=== PATIENT | male | born 2000 | race Caucasian/White ===

== ENCOUNTER 2019-04-20 21:45 | Emergency (ER) | payer SELFPAY ==
--- NOTE | 2019-04-20 22:41 | ER Document Report ---
HPI - HPI Time Seen by Provider: 04/20/19 22:37 Pain Level: 2 Context: Patient is a 18-year-old male who presents emergency department with a chief complaint of sore throat. Patient reports he has had a sore throat for 2 days and it is very painful when he swallows. Patient reports he has not had a fever, ear pain or difficulty swallowing. Patient denies rash. Patient denies sick contacts. Patient reports he has not taken anything for his discomfort. - CONSTITUTIONAL Constitutional: DENIES: Fever Past Medical History - General Information source: Patient - Social History Smoking Status: Former Smoker Chew tobacco use (# tins/day): No Frequency of alcohol use: Occasional Drug Abuse: None Lives with: Family Family History: None Patient has suicidal ideation: No Patient has homicidal ideation: No - Past Medical History Cardiac Medical History: Reports: None Pulmonary Medical History: Reports: None EENT Medical History: Reports: None Neurological Medical History: Reports: None Endocrine Medical History: Reports: None Renal/ Medical History: Reports: None Malignancy Medical History: Reports None GI Medical History: Reports: None Musculoskeletal Medical History: Reports None Skin Medical History: Reports None Psychiatric Medical History: Reports: None Traumatic Medical History: Reports: None Infectious Medical History: Reports: None Surgical Hx: Negative Vertical Provider Document - CONSTITUTIONAL Agree With Documented VS: Yes Exam Limitations: No Limitations General Appearance: No Apparent Distress - HEENT HEENT: Atraumatic, Normocephalic, PERRLA Notes: Patient does have slightly erythematous tonsils bilaterally without edema. Uvula is midline. Airway is patent. - NECK Neck: Normal Inspection Notes: No cervical lymphadenopathy. - RESPIRATORY Respiratory: Breath Sounds Normal, No Respiratory Distress - CARDIOVASCULAR Cardiovascular: Regular Rate, Regular Rhythm - GI/ABDOMEN Gastrointestinal: Abdomen Soft, Abdomen Non-Tender, Normal Bowel Sounds - BACK Back: Normal Inspection - MUSCULOSKELETAL/EXTREMETIES Musculoskeletal/Extremeties: FROM, Non-Tender - NEURO Level of Consciousness: Awake, Alert, Appropriate - DERM Integumentary: Warm, Dry, No Rash Course - Re-evaluation Re-evalutation: 04/20/19 23:29 Patient strep test was negative. I did inform the patient to take Tylenol and ibuprofen as needed for his pain. Strep culture has been sent to the lab. Patient no acute distress. I did offer patient pain medication while he was here such as Tylenol or ibuprofen but patient states he is okay and does not need any at this time. - Vital Signs Vital signs: Temp Pulse Resp BP Pulse Ox 98.1 F 73 16 136/80 H 99 04/20/19 22:00 04/20/19 22:00 04/20/19 22:00 04/20/19 22:00 04/20/19 22:00 - Laboratory Laboratory results interpreted by me: 04/20/19 23:22 Laboratory 04/20/19 22:38 Group A Strep Rapid NEGATIVE Discharge - Discharge Clinical Impression: Sore throat, Sore throat (viral) Condition: Stable Disposition: HOME, SELF-CARE Additional Instructions: *Today was in the emergency department for sore throat. Your strep test was negative. A culture has been sent off and you will be contacted within 48 hours if this test is positive and you do require antibiotics. Most likely this is due to a virus and does get better on its own. Please make sure you are taking Tylenol or ibuprofen as needed for pain. Sip clear liquids frequently you can also use anesthetic [id number] sprays and lozenges. Please return the emergency department if symptoms worsen or persist. Sore Throat Sore throats may be caused by viruses, bacteria, or fungi. Most are due to a virus, and must get better on their own. Bacterial sore throats, particularly those due to "strep," need treatment with antibiotics. If an antibiotic is prescribed, be sure to take the medication for a full 10 days. Failure to take the antibiotic can result in complications such as rheumatic fever. Sometimes, an injection of antibiotics is given instead of pills or liquid. This single "shot" is equal in effectiveness to the oral medication. To relieve symptoms, take acetaminophen for pain. Sip clear liquids frequently, or eat popsicles or ice chips. Anesthetic sprays or lozenges may help. Make sure the air in the room is not too dry. Avoid using decongestants o r antihistamines. Call the doctor if there is no improvement in two days, or if you have difficulty breathing, increasing throat pain, high fever, rash, or frequent vomiting.
[2019-04-20 23:48] VITALS: BP 154/85
== END 2019-04-20 23:56 | disposition home or self-care (01) ==
LOC: ER 21:45
DX: J02.8 Acute pharyngitis due to other specified organisms (principal); B97.89 Other viral agents as the cause of diseases classified elsewhere; Z87.891 Personal history of nicotine dependence
CPT/HCPCS: 87070; 87880; 99283